=== PATIENT | female | born 1985 | race Two or more races ===

== ENCOUNTER 2024-10-20 23:41 | Emergency (ER) | payer OTHER ==
[~2024-10-20] VITALS: Ht 157.5 cm; Wt 54.4 kg
== END 2024-10-21 02:21 | disposition home or self-care (01) ==
LOC: ER 23:43
DX: S01.111A Laceration without foreign body of right eyelid and periocular area, initial encounter (principal); W18.39XA Other fall on same level, initial encounter; Y93.89 Activity, other specified; Y92.012 Bathroom of single-family (private) house as the place of occurrence of the external cause; Y99.9 Unspecified external cause status